=== PATIENT | male | born 1980 | race Caucasian/White ===

== ENCOUNTER 2021-06-11 17:50 | Emergency (ER) | payer OTHER ==
[~2021-06-11 17:50] MED LIST: ALLOPURINOL100 MG PO; ATENOLOL-CHLOR1 EAC1 PO; CHANTIX1 MG PO; DEPO-TESTO200 MG/1 M SC; NAPROXEN500 MG PO; PREDNISONE 20MG20 MG PO; SYNTHROID50 MCG PO; VENTOLIN HFA IN18 GM INH
[2021-06-11 19:07] LABS: CORONAVIRUS 2019 SARS-COV-2 NEGATIVE (NEGATIVE); INFLUENZA A NAA NEGATIVE (NEGATIVE)
[2021-06-11 19:22] LABS: BASOPHIL 0.2 % (0-2); EOSINOPHIL 0 % (0-5); HCT 51.6 % (42.0-52.0); HGB 18.1 g/dl (13.2-18.0); LYMPHOCYTE 20.9 % (15-48); MCH 36.5 pg (25.0-31.0); MCHC 35.1 g/dL (32.0-36.0); MONOCYTE 3.8 % (0-12); NEUTROPHIL 74.9 % (41-80); NRBC 0; PLT 236 K/uL (150-400); RBC 4.96 M/uL (4.70-6.00); RDW 13.2 % (11.5-14.0); WBC 4.8 K/uL (4.0-10.5)
[2021-06-11 19:30] LABS: INR 1.06 (0.9-1.2); PROTHROMBIN TIME 13.2 SECONDS (11.8-13.4)
[2021-06-11 19:31] LABS: D-DIMER 0.29 ug/mLFEU (0.00-0.41)
[2021-06-11 20:04] LABS: BUN 8 mg/dL (7-18); CHLORIDE 95 mmol/L (98-107); CO2 (BICARBONATE) 36 mmol/L (21-32); CREATININE 1.18 mg/dL (0.67-1.17); GLUCOSE 139 mg/dL (74-106); LACTIC ACID 2.9 mmol/L (0.4-1.9); POTASSIUM 3.2 mmol/L (3.5-5.1)
[2021-06-11 20:05] LABS: C-REACTIVE PROTEIN < 0.20 mg/dL (<=0.90); LDH 247 U/L (85-227); MAGNESIUM 2.1 mg/dL (1.8-2.4)
[2021-06-11 20:06] LABS: FT4 (FREE T4) 0.86 ng/dL (0.76-1.46)
[2021-06-11] MEDS ORDERED: ONDANSETRON ODT4 MG PO (21:13)
[2021-06-11] MEDS ORDERED: VIBRAMYCIN100 MG PO (21:13)
[2021-06-11] MEDS ORDERED: PREDNISONE 20MG20 MG PO (21:13)
[2021-06-11] MEDS ORDERED: VENTOLIN HFA18 GM INH (21:13)
== END 2021-06-11 21:22 | disposition home or self-care (01) ==
LOC: FER 17:50
PROVIDERS: Emergency Medicine; Nurse Practitioner Family
DX: J18.9 Pneumonia, unspecified organism (principal); I10 Essential (primary) hypertension; F17.200 Nicotine dependence, unspecified, uncomplicated; Z20.822 Contact with and (suspected) exposure to COVID-19
CPT/HCPCS: 36415; 36600; 71045; 71250; 80048; 82728; 82803; 83605; 83615; 83735; 83880; 84145; 84439; 84443; 84484; 85025; 85379; 85610; 86140; 93005; U0002